=== PATIENT | male | born 1955 | race Two or more races ===

== ENCOUNTER 2022-12-29 07:35 | Outpatient (CLI) | payer OTHER | END 2022-12-29 07:46 | disposition home or self-care (01) | LOC: MRI 07:35 | PROVIDERS: ATTEND Orthopaedic Surgery | DX: S83.201A Bucket-handle tear of unspecified meniscus, current injury, left knee, initial encounter (principal); S83.200A Bucket-handle tear of unspecified meniscus, current injury, right knee, initial encounter | CPT/HCPCS: 73721 ==

== ENCOUNTER 2023-03-16 07:30 | Inpatient (IN) | payer OTHER ==
[~2023-03-16] VITALS: Ht 157.5 cm; Wt 68.0 kg
[2023-03-16] MEDS ORDERED: ALDACTONE25 MG PO (08:14)
[2023-03-16] MEDS ORDERED: TOPROL XL25 M1 PO (08:15)
[2023-03-16] MEDS ORDERED: ACID REDUCER20 M1 PO (08:15)
[2023-03-16] MEDS ORDERED: ENTRESTO 24 MG1 EACH PO (08:15)
[2023-03-16] MEDS ORDERED: JARDIANCE10 MG PO (08:15)
[2023-03-16] MEDS ORDERED: LASIX20 MG PO (08:16)
[2023-03-16 09:01] LABS: HEMOGLOBIN 15.4 g/dL (13-16.00); MEAN CELL VOLUME 79.3 fL (80.0-100.00); MEAN CORPUSCULAR HEMOGLOBIN 26.5 pg (27.00-32.0); MEAN CORPUSCULAR HGB CONC 33.5 g/dl (32.0-36.0); PLATELET COUNT 176 K/uL (150-450); RED BLOOD COUNT 5.81 M/uL (4.00-6.00); RED CELL DISTRIBUTION WIDTH 14.5 % (11.5-14.5)
[2023-03-16 09:17] LABS: PARTIAL THROMBOPLASTIN TIME 30.5 SECONDS (22.0-34.0)
[2023-03-16 09:26] LABS: ALBUMIN 3.6 gm/dL (3.4-5.0); BILIRUBIN TOTAL 0.31 mg/dL (0.3-1.2); CALCIUM 8.4 mg/dL (8.5-10.1); CREATININE SERUM 0.76 mg/dL (0.70-1.30); GFR 102.3; GLOBULINA 3.8 G/DL (2.4-3.5); POTASSIUM 4.17 mEq/L (3.5-5.1); TOTAL PROTEIN 7.4 gm/dL (6.4-8.2)
[2023-03-31 08:47] LABS: HEMATOCRIT 36.5 % (39.0-48.0); HEMOGLOBIN 12.3 g/dL (13-16.00); MEAN CELL VOLUME 79.6 fL (80.0-100.00); MEAN CORPUSCULAR HEMOGLOBIN 26.9 pg (27.00-32.0); MEAN CORPUSCULAR HGB CONC 33.7 g/dl (32.0-36.0); PLATELET COUNT 160 K/uL (150-450); RED BLOOD COUNT 4.58 M/uL (4.00-6.00); RED CELL DISTRIBUTION WIDTH 14.4 % (11.5-14.5)
[2023-04-01 06:54] LABS: HEMATOCRIT 36.5 % (39.0-48.0); HEMOGLOBIN 12.5 g/dL (13-16.00); MEAN CELL VOLUME 79.2 fL (80.0-100.00); MEAN CORPUSCULAR HEMOGLOBIN 27.2 pg (27.00-32.0); MEAN CORPUSCULAR HGB CONC 34.3 g/dl (32.0-36.0); PLATELET COUNT 132 K/uL (150-450); RED BLOOD COUNT 4.62 M/uL (4.00-6.00); RED CELL DISTRIBUTION WIDTH 14.6 % (11.5-14.5)
[2023-04-01] MEDS ORDERED: NORFLEX100MG PO (11:35)
[2023-04-01] MEDS ORDERED: XARELTO10 MG PO (11:35)
[2023-04-01] MEDS ORDERED: OXYC1TAB9 PO (11:35)
[2023-04-01] MEDS ORDERED: GABAPENTIN100 MG PO (11:35)
== END 2023-04-01 16:29 | DRG 470 ==
LOC: SURG 03-23 07:00 → SURH 03-23 07:30 → SURG 03-23 07:30 → O/R 03-30 06:51 → SURH 03-30 16:14
PROVIDERS: ADMIT Orthopaedic Surgery; ATTEND Orthopaedic Surgery
PROC: 0SRC0JZ Replacement of Right Knee Joint with Synthetic Substitute, Open Approach (ICD-10-PCS; principal; 2023-03-30 10:55)
PROC: 4A12X4Z Monitoring of Cardiac Electrical Activity, External Approach (ICD-10-PCS; 2023-03-31)
DX: M17.11 Unilateral primary osteoarthritis, right knee (principal); D62 Acute posthemorrhagic anemia; M85.662 Other cyst of bone, left lower leg; I48.91 Unspecified atrial fibrillation; I11.9 Hypertensive heart disease without heart failure; Z95.810 Presence of automatic (implantable) cardiac defibrillator